=== PATIENT | female | born 1965 | race Caucasian/White ===

== ENCOUNTER → 2017-12-02 | Outpatient (CLI) | payer BC ==
[~2017-12-02] MED LIST: CELE200; DIAZ5; META800
[2017-12-02 14:59] LABS: Creatinine Urine 48.2 mg/dL (27.00-270.00)
[2017-12-02 15:22] LABS: Calcium, Urine 18.6 mg/dL (2.0-17.5); Calcium, Urine Calculation 409.2 mg/24hrs (42.0-353.0)
== END | disposition home or self-care (01) ==
LOC: LAB EV 09:00
PROVIDERS: Internal Medicine
DX: E83.52 Hypercalcemia (principal); E87.6 Hypokalemia; N17.9 Acute kidney failure, unspecified; I10 Essential (primary) hypertension
CPT/HCPCS: 81050; 82340; 82570